=== PATIENT | female | born 1985 | race Caucasian/White ===

== ENCOUNTER 2018-04-06 16:55 | Emergency (ER) | END 2018-04-06 20:30 | disposition home or self-care (01) ==

== ENCOUNTER 2018-04-27 23:17 | Emergency (ER) | END 2018-04-28 02:57 | disposition home or self-care (01) ==

== ENCOUNTER 2018-06-06 23:02 | Inpatient (IN) | END 2018-06-10 12:25 | disposition home or self-care (01) | DRG 419 ==